=== PATIENT | male | born 1955 | race Caucasian/White ===

== ENCOUNTER 2018-03-30 02:27 | Outpatient (CLI) | payer OTHER, SELFPAY ==
[2018-03-30 11:40] LABS: HCT 45.4 % (40.0-50.0); HGB 15.2 g/dL (13.5-17.5); Mean Corp. HGB Concentration 33.5 g/dL (32.0-36.0); Mean Corpuscular Hemoglobin 31.2 pg (27.0-33.0); Mean Corpuscular Volume 93.2 fL (80-95); Mean Platelet Volume 11.1 fL (8.0-11.0); Platelet Count 285 x1000/uL (130-400); RBC 4.87 m/cumm (4.50-6.00); RBC Distribution Width 13.3 % (11.8-14.1); White Blood Cell Count 12.99 k/cumm (4.4-10.8)
[2018-03-30 12:40] LABS: ALT 28 U/L (12-78); AST 17 U/L (15-37); Albumin 3.6 g/dL (3.4-5.0); Alkaline Phosphatase 90 U/L (46-116); Anion Gap 7.3 mmol/L (3-11); BUN 22 mg/dL (7-18); Bilirubin, Total 0.5 mg/dL (0.2-1.0); CO2 30.7 mmol/L (21.0-32.0); CREATININE 1.37 mg/dL (0.70-1.30); Chloride 104 mmol/L (98-107); Cholesterol 153 mg/dL (50-200); Estimated GFR 52.48 (mL/min/1.73m2); Glucose 88 mg/dL (70-100); HDL Cholesterol 60 mg/dL (40-60); LDL CHOLESTEROL 80 mg/dL (<100); Potassium 4.5 mmol/L (3.5-5.1); Sodium 142 mmol/L (136-145); Triglyceride 76 mg/dL (30-150)
== END 2018-03-30 02:47 ==
PROVIDERS: PCP Internal Medicine; Visit Provider Internal Medicine
DX: I10 Essential (primary) hypertension (principal); D72.829 Elevated white blood cell count, unspecified; E78.5 Hyperlipidemia, unspecified
CPT/HCPCS: 36415; 80053; 80061; 83721; 85027

== ENCOUNTER 2018-04-20 06:14 | Day surgery (SDC) | payer OTHER, SELFPAY ==
[2018-04-20 06:15] VITALS: BP 136/69; PULSE 55; RESP 17; TEMP 36.6; O2SAT 95
--- NOTE | 2018-04-20 07:11 | W.PM.DSUDISC ---
Discharge Plan Disposition Patient Disposition: HOME Condition: Good Discharge Details Reason For Visit: RMF Trigger Finger Attending Provider: Robert Wong Primary Care Provider: Holli Moreno Home Meds and New Rx's Prescriptions: New ibuprofen 600 mg tablet 600 mg PO TID PRN (Reason: pain) Qty: 30 RF: 3 acetaminophen 500 mg capsule 1,000 mg PO Q8H PRN (Reason: pain) Qty: 90 RF: 0 Continue ASPIRIN 81 MG tablet 81 mg PO DAILY RF: 0 inhalational spacing device [Aerochamber Plus Flow-Vu,S Msk] 1 EACH spacer 1 ea Miscellaneous QID RF: 0 multivitamin 1 EACH tablet 1 ea PO BID RF: 0 fish oil-dha-epa 1 EACH capsule 1 ea PO BID RF: 0 cholecalciferol (vitamin D3) [Vitamin D3] 2,000 UNIT capsule 2,000 unit PO DAILY RF: 0 fluticasone-salmeterol [Advair Diskus] 1 EACH blister with device 1 puff Inhalation BID Qty: 3 RF: 4 albuterol sulfate [ProAir HFA] 8.5 GM HFA aerosol inhaler 2 puff Inhalation QID Qty: 1 RF: 3 bupropion HCl [Wellbutrin SR] 150 MG tablet extended release 12 hr 150 mg PO BID Qty: 180 RF: 4 metoprolol succinate [Toprol XL] 200 MG tablet extended release 24 hr 200 mg PO DAILY Qty: 90 RF: 4 simvastatin [Zocor] 20 MG tablet 20 mg PO HS Qty: 90 RF: 4 lisinopril-hydrochlorothiazide 1 EACH tablet 1 ea PO DAILY Qty: 90 RF: 4 lorazepam [Ativan] 1 MG tablet 1 mg PO DAILY PRNQty: 30 RF: 0 terazosin 1 MG capsule 1 mg PO HS Qty: 90 RF: 3 Discharge Instructions Stand Alone Forms: [place] T. Finger Release Activity:: Elevate Remove Dressings/Wound Care:: 48 hours Shower/Bathe:: 48 hours Diet:: As Tolerated Discharge Orders Discharge Orders: Discharge Order (Routine); Ordered 04/20/18 Ordered By: Robert Wong DS: Diagnosis Discharge Diagnosis (1) Trigger finger, right middle finger: Status: Acute
[2018-04-20] MEDS: Lidocaine 1% Pres-Free 5 ML VIAL (07:33)
[2018-04-20] MEDS: Bupivacaine 0.5% Pres-Free 30 ML VIAL (07:40)
--- NOTE | 2018-04-20 17:35 | ROE_ITS ---
Date of service: 04/20/18 Time of Service: 08:34 Operative Note DATE OF PROCEDURE: 04/20/18 PRE-OP DIAGNOSIS: Trigger Finger -right middle finger POST-OP DIAGNOSIS: same PROCEDURE: Trigger Finger Release -right middle finger SURGEON: Robert Wong ANESTHESIA: local PATHOLOGY: none sent COMPLICATIONS: None Patient was transported to: same day Patient's condition: stable Indications: I have seen Jono in clinic for symptoms of a trigger finger. The catching, clicking, locking, and pain limited function. The diagnosis of trigger finger was evident. The symptoms had not responded to conservative measures. I discussed trigger finger release with the patient. I reviewed the risks of the procedure to include, but not limited to, bleeding, infection, pain , stiffness, incomplete release, damage to nerves or vessels, continued catching , recurrence. Despite these risks, the patient elected to proceed. Findings: There was a tightened A1 karthik which was released. The flexor tendons were inspected and the patient was able to move the finger without any catching, clicking, or locking. Procedure Description: Jono was greeted in the preoperative holding area where the correct side was identified and marked. The consent was reviewed with the patient and signed. All questions were answered. Jono was taken back to the operating room. The patient was placed into the supine position on the operating room table with the right arm on an arm board. All bony prominences were well padded. No prophylactic antibiotics were administered since this was a clean, elective hand surgical case. The right arm was then prepped with Chloraprep and draped in a standard fashion with stockinette and extremity drape. A timeout to confirm correct identity, side and site, procedure, allergies, anesthesia, and medical concerns was performed. The surgical site was marked as a longitudinal incision directly over the A1 karthik of the involved digit. This was confirmed with palpation during finger flexion. This area, overlying the metacarpal head, was then anesthetized with 1 % Lidocaine. The patient tolerated this well and once the anesthetic had setup , the procedure began. A longitudinal incision was made through skin only, approximately 1cm. The deep tissues were dissected bluntly. Once the A1 karthik and flexor tendons were identified the soft tissue including neurovascular structures were retracted medially and laterally. There were no crossing structures over the A1 karthik. The proximal edge of the karthik was identified and the karthik was incised with tenotomy scissors. There was a release of the tendons once this was fully released. The tendons were then removed from the wound and inspected. Excess synovium was resected. The tendons were then returned and the patient was asked to move the finger into deep flexion and back to extension. There was no recreation of the pre- operative symptoms. The hand was then once more inspected for any A0 karthik or area of possible constriction. The wound was then irrigated and the skin was closed with a 4-0 Nylon. This was dressed with gauze and a Conform dressing. The patient tolerated the procedure well and was returned to the Same Day Surgery area in a stable condition suffering no known complication.
== END 2018-04-20 08:02 | disposition home or self-care (01) ==
PROVIDERS: PCP Internal Medicine; Visit Provider Student in an Organized Health Care Education/Training Program
PROC: (CPT 26055; principal; 2018-04-20 07:30)
DX: M65.331 Trigger finger, right middle finger (principal)
CPT/HCPCS: 26055

== ENCOUNTER 2018-11-24 12:26 | Outpatient (CLI) | payer OTHER, SELFPAY ==
[2018-11-24 12:58] LABS: Abs Immature Grans 0.01 k/cumm (0.0-0.09); Absolute Basophil Count 0.03 k/cumm (0.0-0.2); Absolute Lymphocyte Count 2.26 k/cumm (1.2-3.4); Absolute Monocyte Count 0.65 k/cumm (0.11-0.7); Basophils % 0.3; Eosinophils % 5.1; HCT 41.6 % (40.0-50.0); HGB 13.6 g/dL (13.5-17.5); Immature Grans % 0.1; Lymphocytes % 23.2; Mean Corp. HGB Concentration 32.7 g/dL (32.0-36.0); Mean Corpuscular Hemoglobin 30.5 pg (27.0-33.0); Mean Corpuscular Volume 93.3 fL (80-95); Mean Platelet Volume 11.5 fL (8.0-11.0); Monocytes % 6.7; Neutrophils % 64.6; Platelet Count 270 x1000/uL (130-400); RBC 4.46 m/cumm (4.50-6.00); RBC Distribution Width 13.2 % (11.8-14.1); White Blood Cell Count 9.75 k/cumm (4.4-10.8)
[2018-11-24 14:14] LABS: ALT 33 U/L (12-78); AST 19 U/L (15-37); Albumin 3.4 g/dL (3.4-5.0); Alkaline Phosphatase 74 U/L (46-116); Anion Gap 7.7 mmol/L (3-11); BUN 25 mg/dL (7-18); Bilirubin, Total 0.3 mg/dL (0.2-1.0); CO2 29.3 mmol/L (21.0-32.0); CREATININE 1.38 mg/dL (0.70-1.30); Chloride 105 mmol/L (98-107); Estimated GFR 51.88 (mL/min/1.73m2); Glucose 92 mg/dL (70-100); Potassium 4.1 mmol/L (3.5-5.1); Sodium 142 mmol/L (136-145); Total Protein 6.4 g/dL (6.4-8.2)
[2018-11-26 09:03] LABS: PSA, Screening 0.3 ng/ml (0-4.5)
== END 2018-11-24 12:46 ==
PROVIDERS: PCP Internal Medicine; Visit Provider Internal Medicine
DX: I10 Essential (primary) hypertension (principal); R35.1 Nocturia; R50.9 Fever, unspecified; Z12.5 Encounter for screening for malignant neoplasm of prostate
CPT/HCPCS: 36415; 80053; 84153; 85025

== ENCOUNTER 2018-12-06 07:04 | Day surgery (SDC) | payer OTHER, SELFPAY ==
--- NOTE | 2018-12-06 06:51 | COLE_ITS ---
Date of service: 12/06/18 Time of Service: 08:08 Colonoscopy Report Date of procedure: 12/06/18 Pre-op diagnosis general: Hx of polyps/ Family history of colon cancer Post-op diagnosis procedure note: same (and polyps and diverticulosis) Procedure: Colonoscopy with polypectomy by cold forceps Surgeon: Maria Luisa Xavier Anesthesia proc note operative: other (General/ ASA 3/ Elvis Alvarez, DAVONTE ) Estimated blood loss (mL): 5 Pathology: other (cecal polyp x2, Ascending polyp x2) Complications: None Disposition: same day Indications: Mr. Hirsch is a pleasant 63 year old male who is here today for another colonoscopy. His last Colonoscopy was in 2014 and he was noted to have a Tubular adenoma. he also has a family history of colon Cancer in his mother, Maternal Grandmother and maternal uncles and aunts. Risks, benefits and complications have been reviewed. Complications include but are not limited to bleeding, pain, perforation, missed small lesion/polyp, sore throat, aspiration and adverse reaction to the medications. Questions were entertained and answered to their satisfaction and they wished to proceed. No guarantees were given or implied. Prep: Miralax/Dulcolax Procedure Start Time: 08:08 Procedure End Time: 08:29 Retraction Time: 19 minutes Findings: 4 polyps noted. 2 in the cecum and 2 in the ascending colon. Mild diverticulosis of the sigmoid colon Procedure Description: After informed consent was obtained the patient was taken to the procedure room and placed in a left decubitous position. Monitors were applied and a time out was done. The patients name, date of , procedure, allergies to medications and metal in their body was reviewed. The patient was then sedated. Once sedated and comfortable a rectal exam was done. External exam was normal. Internal exam revealed a normal sphincter tone and no palpable masses. Unable to feel the prostate The scope was then introduced and retro-flexed. No internal hemorrhoids, polyps or masses were identified. The scope was then advanced to the cecum without difficulty. The TI and appendiceal orifice were identified. The prep was good. The scope was then slowly retracted over 19 minutes back into the rectum. Polyps were removed with cold forceps in the cecum x2 and the ascending colon x2. Mild diverticulosis was noted in the sigmoid colon. The scope was removed and the patient was woken up and taken back to Same day surgery in stable c ondition. The patient tolerated the procedure well and there were no immediate complications. Follow up: The patient should follow up in 3-5 years unless they develop changes in bowel habits or other new gastrointestinal complaints.
--- NOTE | 2018-12-06 06:51 | W.PM.DSUDISC ---
Discharge Plan Disposition Patient Disposition: HOME Condition: Good Discharge Details Reason For Visit: Colonoscopy Attending Provider: Maria Luisa Xavier Primary Care Provider: Holli Moreno Home Meds and New Rx's Prescriptions: Continued simvastatin [Zocor] 20 mg tablet 20 mg PO HS RF: 0 albuterol sulfate [ProAir HFA] 90 mcg/actuation HFA aerosol inhaler 2 puff Inhalation QID Qty: 1 RF: 3 acetaminophen 500 mg capsule 1,000 mg PO Q8H PRN (Reason: pain) Qty: 90 RF: 0 ASPIRIN 81 MG tablet 81 mg PO DAILY Qty: 100 RF: 2 bupropion HCl [Wellbutrin SR] 150 mg tablet sustained-release 12 hr 150 mg PO BID Qty: 180 RF: 4 cholecalciferol (vitamin D3) [Vitamin D3] 2,000 unit capsule 2,000 unit PO DAILY Qty: 90 RF: 3 fish oil-dha-epa 1,200-144-216 mg capsule 1 cap PO BID Qty: 90 RF: 3 fluticasone propion-salmeterol [Advair Diskus] 250-50 mcg/dose blister with device 1 inh Inhalation BID Qty: 1 RF: 5 ibuprofen 600 mg tablet 600 mg PO TID PRN (Reason: pain) Qty: 30 RF: 3 Aerochamber Plus Flow-Vu,S Msk spacer 1 ea Miscellaneous QID Qty: 10 RF: 3 lorazepam [Ativan] 1 mg tablet 1 mg PO DAILY PRN (Reason: anxiety) Qty: 30 RF: 0 metoprolol succinate [Toprol XL] 200 mg tablet extended release 24 hr 200 mg PO DAILY Qty: 90 RF: 4 Centrum Complete 18-400 mg-mcg tablet 1 tab PO BID Qty: 90 RF: 3 nitroglycerin 0.4 mg tablet, sublingual 0.4 mg SL Q5-15M PRN (Reason: angina) Qty: 90 RF: 2 terazosin 1 mg capsule 1 mg PO HS Qty: 90 RF: 3 lisinopril-hydrochlorothiazide 20-25 mg tablet 1 tab PO DAILY RF: 0 Discontinued polyethylene glycol 3350 17 gram/dose powder 238 g PO ONCE Qty: 238 RF: 0 bisacodyl [Dulcolax (bisacodyl)] 5 mg tablet,delayed release (DR/EC) 5 mg PO ONCE Qty: 4 RF: 0 Discharge Instructions Instructions: Colonoscopy (DC), Diverticulosis (DC), Colorectal Polyps (DC) Additional Instructions: Findings: 4 polyps mild diverticulosis Follow up: 3-5 years Please call if you develop: fevers >101.5 Nausea or Vomiting Abdominal pain that is not transient DAY SURGERY UNIT POST COLONOSCOPY INSTRUCTIONS 1. Because there will be medication in your system for the next 24 hours, you may feel a little sleepy. Your coordination will be affected. Therefore: a. Do not drive or operate dangerous equipment for 24 hours. b. Do not drink alcohol beverages for 24 hours (not even beer). c. Plan to go home and rest for the day. 2. Generally there are no restrictions on your activity after a day or so has gone by, but you may feel a bit fatigued for a few days. 3 After you arrive home you may have a light meal and return to a normal diet as you can tolerate it without feeling sick to your stomach. 4. After surgery, you may feel pain or discomfort. This should be only transient, but if it persists please contact your doctor. 5. If there are any questions regarding the findings of your procedure, please feel free to contact your doctor. 6. If you are unable to contact your doctor with a problem, contact the hospital at [phone]. 7. Continue all your regular medications unless directed otherwise. I understand the above instructions and have no questions. Signature of Patient or Responsible Adult Escort Date/Time Name of Responsible Adult Escort Signature of Nurse Date/Time Activity:: Activity as Tolerated Diet:: high Fiber diet Discharge Orders Discharge Orders: Discharge Order (Routine); Ordered 12/06/18 Ordered By: Maria Luisa Xavier DS: Diagnosis Discharge Diagnosis (1) S/P colonoscopy: Status: Acute (2) Colorectal polyps: Status: Acute (3) Diverticulosis: Status: Acute
[2018-12-06 07:25] VITALS: BP 172/86; PULSE 67; RESP 16; TEMP 36.1; O2SAT 96
[2018-12-06] MEDS: Lactated Ringers 1,000 ML 80 ML IV (07:42)
--- NOTE | 2018-12-06 08:12 | BOWEL_PTH ---
PATIENT: Bishop Hirsch LOC: [facility] U#:[id number] AGE/SX: 63/M ROOM: RE12/06/[address]: Maria Luisa Xavier MD : 1955 BED: DIS: 12/06/2018 SPEC #: [id number] RECD: 12/06/18 12:52 STATUS: OLGA LIDIA REQ #: [id number] GLEN: 12/06/18 08:[address]: Maria Luisa Xavier DEPT: Surgical Specimen RECD BY: Anabela Roberts ENTERED: 12/06/18 12:53 SP TYPE: Bowel OTHR DR: Holli Viera MD Tissues: 1 - BIOPSY BOWEL 2 - BIOPSY BOWEL Procedures: GROSS AND MICRO LEVEL 4 Comments: [id number]
[2018-12-06 09:10] VITALS: BP 134/71; PULSE 63; RESP 18; TEMP 36; O2SAT 96
== END 2018-12-06 09:35 | disposition home or self-care (01) ==
LOC: SUR 07:05
PROVIDERS: PCP Internal Medicine; Visit Provider Surgery
PROC: 0DJD8ZZ Inspection of Lower Intestinal Tract, Via Natural or Artificial Opening Endoscopic (ICD-10-PCS; CPT 45378; principal; 2018-12-06 08:30)
DX: Z12.11 Encounter for screening for malignant neoplasm of colon (principal); Z86.010 Personal history of colon polyps; Z80.0 Family history of malignant neoplasm of digestive organs; D12.0 Benign neoplasm of cecum; D12.2 Benign neoplasm of ascending colon; K51.40 Inflammatory polyps of colon without complications; K57.30 Diverticulosis of large intestine without perforation or abscess without bleeding; I10 Essential (primary) hypertension; J44.9 Chronic obstructive pulmonary disease, unspecified
CPT/HCPCS: 45380; 88305

== ENCOUNTER 2019-07-27 12:20 | Outpatient (REF) | payer OTHER, SELFPAY ==
--- NOTE | 2019-07-27 11:40 | SKI_PTH ---
PATIENT: Bishop Hirsch LOC: [facility] U#:[id number] AGE/SX: 63/M ROOM: RE07/27/[address]: Saira Mcconnell : 1955 BED: DIS: 07/27/2019 SPEC #: [id number] RECD: 07/27/19 12:50 STATUS: OLGA LIDIA REQ #: [id number] GLEN: 07/27/19 11:[address]: Saira Mcconnell DEPT: Surgical Specimen RECD BY: Anabela Roberts ENTERED: 07/27/19 12:51 SP TYPE: KHOA ZIMMER DR: Holli Viera MD Tissues: 1 - SKIN CYST/TAG/DEBRIDEMENT Procedures: GROSS AND MICRO LEVEL 3 Comments: [id number]
== END 2019-07-27 12:40 ==
LOC: LBN 12:20
PROVIDERS: PCP Internal Medicine; Visit Provider Surgery
DX: L72.8 Other follicular cysts of the skin and subcutaneous tissue (principal)
CPT/HCPCS: 88304

== ENCOUNTER 2019-07-28 08:29 | Outpatient (CLI) | payer OTHER, SELFPAY ==
[2019-07-28 12:32] LABS: Calculated LDL 80 mg/dL (<100); Cholesterol 149 mg/dL (<200); HDL Cholesterol 57 mg/dL (40-60); Triglyceride 61 mg/dL (<150)
== END 2019-07-28 08:49 ==
PROVIDERS: PCP Internal Medicine; Visit Provider Nurse Practitioner
DX: E78.5 Hyperlipidemia, unspecified (principal)
CPT/HCPCS: 36415; 80061

== ENCOUNTER 2019-09-09 10:09 | Outpatient (CLI) | payer OTHER, SELFPAY ==
[2019-09-09 12:42] LABS: CREATININE 1.13 mg/dL (0.70-1.30); Potassium 4.2 mmol/L (3.5-5.1)
== END 2019-09-09 10:29 ==
PROVIDERS: PCP Internal Medicine; Visit Provider Nurse Practitioner
DX: I10 Essential (primary) hypertension (principal)
CPT/HCPCS: 36415; 82565; 84132

== ENCOUNTER 2020-04-11 01:41 | Outpatient (CLI) | payer MEDICARE, OTHER, SELFPAY ==
--- NOTE | 2020-04-11 07:50 | DI.CT_ITS ---
EXAM: CT CHEST WO CLINICAL HISTORY: screening FOR LUNG CA,EXSMOKER TECHNIQUE: Imaging Protocol: Axial computed tomography images with coronal and sagittal reformatted images were created and reviewed COMPARISON: CT CHEST WITH CONTRAST from 10/18/2015 FINDINGS: Tracheobronchial tree: Patent where visualized. Mediastinum and Sasha: No dominant adenopathy or fluid collection. Small hiatal hernia. Pulmonary parenchyma: No consolidation or dominant measurable mass. Mild centrilobular emphysematous changes are present. Scarring or atelectasis in the right middle lobe and left lingula. Lung Nodules: None. Pleura: No effusion or pneumothorax. Heart: The heart is not dilated. Mild coronary artery calcification. No significant pericardial effu sarah beth. Aorta: Thoracic aorta non-dilated.Atherosclerosis. Upper abdomen: Unremarkable. Bones: Degenerative changes. Soft Tissues: Unremarkable. IMPRESSION: No pulmonary nodules. Lung RADS Cat 1 - Negative: No nodules and definitely benign nodules Lung-RADS 1.0 CATEGORIES: Category 0 - Prior chest CT exam(s) being located for comparison. Category 1 - Annual screening in 12 months. No nodules or definitely benign nodules. Category 2 - Annual screening in 12 months. Benign appearance. Nodules with low likelihood of becomin g active cancer. Category 3 - 6-month follow-up. Probably benign. Short-term follow-up suggested. Nodules with low lik elihood of becoming active cancer. Category 4A - 3-month follow-up and CT/PET if >8 mm in size. Suspicious finding. Findings which requi re additional testing. Category 4B - Findings which require additional testing and tissue sampling. Suspicious finding. C Added to Any of the Above - History of prior lung cancer screening. S Added to Any of the Above - Significant unexpected other finding. RADIATION DOSE DELIVERED: 91.73mGy.cm Total DLP 91.73mGy.cm Total DLP 91.73mGy.cm Total DLP DATA REPOSITORY: All CT scans at this facility are submitted to the National Radiology Data Registry (NRDR) Dose Index Registry (DIR) with the [employer] (ACR). RADIATION OPTIMIZATION: All CT scans at this facility use at least one of these dose optimization te chniques: automated exposure control; mA and/or kV adjustment per patient size (includes targeted exa ms where dose is matched to clinical indication); or iterative reconstruction.
== END 2020-04-11 02:01 ==
PROVIDERS: PCP Nurse Practitioner; Visit Provider Nurse Practitioner
DX: Z12.2 Encounter for screening for malignant neoplasm of respiratory organs (principal); Z87.891 Personal history of nicotine dependence
CPT/HCPCS: 71250

== ENCOUNTER 2020-09-14 01:55 | Outpatient (CLI) | payer MEDICARE, OTHER, SELFPAY ==
[2020-09-14 12:38] LABS: CREATININE 1.4 mg/dL (0.70-1.30); Calculated LDL 62 mg/dL (<100); Cholesterol 127 mg/dL (<200); HDL Cholesterol 51 mg/dL (40-60); Potassium 3.9 mmol/L (3.5-5.1); Triglyceride 71 mg/dL (<150)
== END 2020-09-14 01:56 | disposition home or self-care (01) ==
LOC: LOS 01:55
PROVIDERS: PCP Nurse Practitioner; Visit Provider Nurse Practitioner
DX: I10 Essential (primary) hypertension (principal); E78.5 Hyperlipidemia, unspecified
CPT/HCPCS: 36415; 80061; 82565; 84132

== ENCOUNTER 2021-10-02 03:00 | Outpatient (CLI) | payer MEDICARE, SELFPAY ==
[2021-10-02 08:05] LABS: Hemoglobin A1C 6.3 % (<5.7)
[2021-10-02 08:34] LABS: CREATININE 1.3 mg/dL (0.70-1.30); Calculated LDL 67 mg/dL (<100); Cholesterol 134 mg/dL (<200); Estimated GFR 55.06 (mL/min/1.73m2); HDL Cholesterol 49 mg/dL (40-60); Potassium 3.6 mmol/L (3.5-5.1); Triglyceride 93 mg/dL (<150)
== END 2021-10-02 03:01 | disposition home or self-care (01) ==
LOC: LBO 03:00
PROVIDERS: PCP Nurse Practitioner; Visit Provider Nurse Practitioner
DX: E78.2 Mixed hyperlipidemia (principal); I10 Essential (primary) hypertension; R73.09 Other abnormal glucose
CPT/HCPCS: 36415; 80061; 82565; 83036; 84132

== ENCOUNTER 2022-03-24 02:37 | Outpatient (CLI) | payer MEDICARE, SELFPAY ==
[2022-03-24 12:44] LABS: Anion Gap 9.1 mmol/L (3-11); BUN 27 mg/dL (7-18); CO2 30.9 mmol/L (21.0-32.0); CREATININE 1.6 mg/dL (0.70-1.30); Calcium 9.1 mg/dL (8.5-10.1); Calculated LDL 60 mg/dL (<100); Chloride 103 mmol/L (98-107); Cholesterol 123 mg/dL (<200); Estimated GFR 46.93 (mL/min/1.73m2); Glucose 90 mg/dL (74-106); HDL Cholesterol 53 mg/dL (40-60); Sodium 143 mmol/L (136-145); Triglyceride 52 mg/dL (<150)
[2022-03-24 13:36] LABS: Hemoglobin A1C 6.1 % (<5.7)
== END 2022-03-24 02:38 | disposition home or self-care (01) ==
LOC: LOS 02:37
PROVIDERS: PCP Nurse Practitioner; Visit Provider Nurse Practitioner
DX: I10 Essential (primary) hypertension (principal); R73.02 Impaired glucose tolerance (oral); E66.01 Morbid (severe) obesity due to excess calories; Z98.41 Cataract extraction status, right eye
CPT/HCPCS: 36415; 80048; 80061; 83036

== ENCOUNTER 2022-06-16 02:49 | Outpatient (CLI) | payer MEDICARE, SELFPAY ==
[2022-06-16 12:26] LABS: Bilirubin Negative (Negative); Blood Negative (Negative); Clarity Clear (Clear); Glucose Negative (Negative); Ketones Negative (Negative); Leukocyte Esterase Negative (Negative); Nitrite Negative (Negative); Specific Gravity >= 1.030 (1.005-1.025); Urobilinogen 0.2 EU/dL (Up TO 0.2); pH 5.5 (5-8)
[2022-06-16 12:43] LABS: PROTEIN 9.9 mg/dL (0.0-11.9)
[2022-06-16 12:46] LABS: ALT 29 U/L (16-63); AST 18 U/L (15-37); Albumin 3.6 g/dL (3.4-5.0); Alkaline Phosphatase 81 U/L (46-116); Anion Gap 5.5 mmol/L (3-11); BUN 22 mg/dL (7-18); Bilirubin, Total 0.4 mg/dL (0.2-1.0); CO2 31.5 mmol/L (21.0-32.0); CREATININE 1.4 mg/dL (0.70-1.30); Calcium 9.6 mg/dL (8.5-10.1); Chloride 104 mmol/L (98-107); Estimated GFR 55.09 (mL/min/1.73m2); Glucose 101 mg/dL (74-106); Potassium 3.6 mmol/L (3.5-5.1); Sodium 141 mmol/L (136-145)
[2022-06-16 13:09] LABS: Hemoglobin A1C 5.9 % (<5.7)
== END 2022-06-16 02:50 | disposition home or self-care (01) ==
LOC: LOS 02:49
PROVIDERS: PCP Nurse Practitioner Family; Visit Provider Family Medicine
DX: R73.03 Prediabetes (principal); K76.0 Fatty (change of) liver, not elsewhere classified; N18.30 Chronic kidney disease, stage 3 unspecified; R30.0 Dysuria
CPT/HCPCS: 36415; 80053; 81003; 83036; 84156

== ENCOUNTER → 2022-09-18 09:00 | Outpatient (BNVA) | payer MEDICARE, SELFPAY | PROVIDERS: PCP Nurse Practitioner Family; Referring Provider Nurse Practitioner; Visit Provider Physical Therapy Assistant | DX: Z12.11 Encounter for screening for malignant neoplasm of colon (principal); Z86.010 Personal history of colon polyps; Z80.0 Family history of malignant neoplasm of digestive organs ==

== ENCOUNTER 2022-10-03 07:54 | Day surgery (SDC) | payer MEDICARE, SELFPAY ==
--- NOTE | 2022-10-02 08:15 | W.COLOREPORT ---
Date of service: 10/03/22 Time of Service: 10:03 Colonoscopy Report Date of procedure: 10/03/22 Pre-op diagnosis general: villous adenoma in cecum /CRC in mother Post-op diagnosis procedure note: other (Diverticula and multiple polyps) Surgeon: Saira Mcconnell Anesthesia Type: General:No Airway Estimated blood loss (mL): 1 Pathology: other Complications: None Disposition: same day Prep: Miralax/Dulcolax Retraction Time: 24 Procedure Description: After informed consent was obtained the patient was taken to the procedure room and placed in a left decubitous position. Monitors were applied and a time out was done. The patients name, date of , procedure, allergies to medications and metal in their body was reviewed. The patient was then sedated. Once sedated and comfortable a rectal exam was done. External exam was normal. Internal exam revealed a normal sphincter tone and no palpable masses. The scope was then introduced and retrofelexed. No Internal hemorrhoids were identified. The scope was then advanced to the cecum without Difficulty. The TI and appendiceal orifice were identified. The prep was BBPS 3 in all segments for total of 9. the scope was then slowly retracted over 24 minutes back into the rectum. He had 3 polyps at 90 cm. 1 polyp was 1 cm flat polyp that was removed with a cold snare. The second polyp was a 0.75 cm flat polyp that is removed with cold snare. The third polyp is a 5 mm flat polyp that is removed with a cold biting forcep. He had x1 flat 5 mm polyp at 80 cm that is removed with a cold biting forcep. He had x3 polyps at 70 cm. One is removed with a cold snare ; that polyp is 0.75 cm and flat. The other x2 polyps are flat, 5 mm polyps were both removed with cold biting snare. He had a polyp at 60 cm that is a flat 5 mm polyp and is removed with a cold forcept. All specimens are retrieved and no bleeding is noted. He had a few small scattered diverticula confined to the sigmoid colon. There are no signs of active bleeding or infection. The mucosa is otherwise pink and healthy with a normal vascular pattern. The scope was removed and the patient was woken up and taken back to Same day surgery in stable condition. The patient tolerated the procedure well and there were no immediate complications. Follow up: The patient should follow up in approximately 3 years, path pending, unless they develop changes in bowel habits or other new gastrointestinal complaints.
--- NOTE | 2022-10-02 08:29 | PDOC.DSDIS_ITS ---
Date of service: 10/03/22 Time of Service: 10:00 Discharge Plan Disposition Patient Disposition: Home Condition: Good Discharge Details Attending Provider: Saira Mcconnell Primary Care Provider: Doc Del Toro Home Meds and New Rx's Prescriptions: Held ASPIRIN 81 MG tablet 81 mg PO DAILY Qty: 100 2RF Hold Instructions: Resume on 10/15/22. no asa/nsaid's for 10 days post procedure Discontinued bisacodyl [Dulcolax (bisacodyl)] 5 mg tablet,delayed release (DR/EC) 5 mg PO ONCE Qty: 4 0RF Rx Instructions: Take according to provider's instructions for colonoscopy prep. polyethylene glycol 3350 17 gram/dose powder 17 g PO ONCE Qty: 238 0RF Rx Instructions: To be taken as directed by prescriber's office for colonoscopy prep. No Action acetaminophen 500 mg capsule 1,000 mg PO Q8H PRN (Reason: pain) Qty: 90 0RF fexofenadine [Balbina Allergy] 60 mg tablet 60 mg PO BID lorazepam [Ativan] 1 mg tablet 1 mg PO DAILY PRN (Reason: anxiety) Qty: 30 0RF cholecalciferol (vitamin D3) [Vitamin D3] 50 mcg (2,000 unit) capsule 2,000 unit PO DAILY Qty: 90 3RF nitroglycerin 0.4 mg tablet, sublingual 0.4 mg SL Q5-15M PRN (Reason: angina) Qty: 90 2RF metoprolol succinate [Toprol XL] 200 mg tablet extended release 24 hr 200 mg PO DAILY Qty: 90 4RF terazosin 1 mg capsule 1 mg PO HS Qty: 90 3RF amlodipine 10 mg tablet 10 mg PO DAILY Qty: 90 3RF bupropion HCl [Wellbutrin SR] 150 mg tablet sustained-release 12 hr 150 mg PO BID Qty: 180 4RF lisinopril 20 mg tablet 20 mg PO DAILY Qty: 30 11RF lisinopril-hydrochlorothiazide 20-25 mg tablet 1 tab PO DAILY Qty: 90 3RF Rx Instructions: in addition to lisinopril 20 mg simvastatin [Zocor] 20 mg tablet 20 mg PO HS Qty: 90 4RF fluticasone propion-salmeterol [Advair Diskus] 250-50 mcg/dose blister with device 1 inh inhalation BID Qty: 60 11RF Discharge Instructions Additional Instructions: DSU Colonoscopy Post- Op Instructions Instructions for Everyone who is given Anesthesia: For your safety, please do the following for the next twenty-four (24) hours: *Do Not operate a motor vehicle (car, truck, motorcycle, etc.) *Do Not drink alcoholic beverages or use any recreational drugs for the first 24 hours or while taking pain medications. The medications in your body may have a reaction that can be dangerous. *Do Not make any important decisions or sign any important papers. Findings: -multiple polyps -diverticula Follow up: My office will send a letter in 2 to 3 weeks time detailing as to what type of polyps they were and when we want you to repeat the colonoscopy, most likely 3 years time. 1. No lifting over 20 pounds or strenuous activity for the first 72 hours after your procedure. After 72 hours there are no restrictions on your activity but you may feel fatigued for a few days. 2. After you arrive home you may have a light meal and return to your normal diet as you can tolerate it without feeling sick to your stomach. 3. You may have a bloated, gaseous feeling in your belly (abdomen) after a colonoscopy. Passing gas and belching will help. Walking or lying down on your left side with your knees flexed may relieve the discomfort. 4. No aspirin or NSAIDs for 7 to 10 days. Tylenol is okay. Call the office at [phone] (Office) or [phone] (Hospital) right away if you notice any of the following: a.Vomiting of blood or ?coffee ground stools?. b.Rectal bleeding 1Tbsp, blood clots or continuous bleeding. c.Severe belly (abdominal) pain. d.A hard distended belly (abdomen) and an inability to pass gas. 4. Please don?t expect to have a normal BM (bowel movement) for 2-3 days after your procedure. 5. If there are questions regarding the findings of your procedure, please conta ct your doctor 6. If you are unable to contact your doctor with a problem, contact the hospital at [phone]. 7. Continue all your regular medications unless directed otherwise. I understand the above instructions and have no questions. Signature of Patient or Adult Escort Name of Responsible Adult Escort Signature of Nurse Date/Time Activity:: see aboe Diet:: see above Discharge Orders Discharge Orders: Discharge Order (Routine); Ordered 10/03/22 Ordered By: Saira Mcconnell DS: Diagnosis Discharge Diagnosis (1) Villous adenoma of right colon: Status: Acute (2) Family history of colon cancer: (3) Non-alcoholic fatty liver disease: Status: Acute (4) Hyperlipidemia, unspecified: Status: Acute (5) Essential hypertension: Status: Acute (6) Depressive disorder: Status: Acute (7) Congenital anomaly of kidney: Status: Acute (8) Chronic obstructive lung disease: Status: Acute (9) Benign prostatic hyperplasia without lower urinary tract symptoms: Status: Acute (10) History of tobacco use:
[2022-10-03] VITALS (8 sets, daily range): BP systolic 108–138; BP diastolic 55–72; PULSE 56–66; RESP 16–22; TEMP 36.1–36.4; O2SAT 91–97; BMI 36.6
[2022-10-03] MEDS: Lactated Ringers 1,000 ML 80 ML IV (09:00)
--- NOTE | 2022-10-03 09:08 | W.ANESPRE ---
General Info Date of Service Date Performed: 10/03/22 Height: 5 ft 9 in Weight: 112.6 kg Body Mass Index (BMI): 36.6 Surgical Procedure: Operation Date: 10/03/22 09:05 Proposed Procedure Side Surgeon will Mcconnell, Meds Allergies and Home Medications Allergies Allergy/AdvReac Type Severity Reaction Status Date / Time environmental Allergy Intermediate stuffyness, Uncoded 10/03/22 08:33 sneezing Home Medication Medication Instructions Recorded ASPIRIN 81 mg PO DAILY #100 tab-caps 09/15/18 acetaminophen 500 mg capsule 1,000 mg PO Q8H PRN pain #90 caps 03/30/19 cholecalciferol (vitamin D3) 50 2,000 unit PO DAILY #90 caps 04/05/21 mcg (2,000 unit) capsule (Vitamin D3) nitroglycerin 0.4 mg sublingual 0.4 mg sublingual Q5-15M PRN 04/05/21 tablet angina #90 tabs metoprolol succinate 200 mg 200 mg PO DAILY #90 tab-caps 08/29/21 tablet,extended release 24 hr (Toprol XL) terazosin 1 mg capsule 1 mg PO HS #90 tab-caps 09/03/21 amlodipine 10 mg tablet 10 mg PO DAILY #90 tabs 09/13/21 bupropion HCl 150 mg tablet,12 hr 150 mg PO BID #180 tab-caps 09/13/21 sustained-release (Wellbutrin SR) lisinopril 20 mg tablet 20 mg PO DAILY #30 tabs 09/13/21 lisinopril 20 1 tab PO DAILY #90 tabs 09/13/21 mg-hydrochlorothiazide 25 mg tablet simvastatin 20 mg tablet (Zocor) 20 mg PO HS #90 tab-caps 09/13/21 fexofenadine 60 mg tablet (Balbina 60 mg PO BID 10/11/21 Allergy) fluticasone 250 mcg-salmeterol 50 1 inh inhalation BID #60 ea 10/14/21 mcg/dose blistr powdr for inhalation (Advair Diskus) lorazepam 1 mg tablet (Ativan) 1 mg PO DAILY PRN anxiety #30 06/02/22 tab-caps Current Visit Medications: Current Medications Generic Name Dose Route Start Last Admin Trade Name Freq PRN Reason Stop Dose Admin Hyoscyamine Sulfate 0.125 mg 10/03/22 08:31 Hyoscyamine 0.125 Mg Sl/Oral/Chew SL DIRECTED PRN Ringer's Solution 1,000 mls @ 80 mls/hr 10/03/22 06:00 10/03/22 09:00 IV 11/01/22 23:59 80 mls/hr INFUSION RUDY Administration IV Miscellaneous Supplies 1 each 10/03/22 06:00 Iv Access IV 11/01/22 23:59 DIRECTED RUDY Ondansetron HCl 4 mg 10/03/22 08:31 Ondansetron 4 Mg/2 Ml Vial IVP Q4H PRN PRN Nausea / Vomiting Sodium Chloride 0 ml 10/03/22 06:00 Normal Saline Flush 10 Ml Syr IV 11/01/22 23:59 PRN PRN Sodium Chloride 0 ml 10/03/22 06:00 Normal Saline 10 Ml Vial IJ 11/01/22 23:59 DIRECTED PRN Sterile Water 0 ml 10/03/22 06:00 Water,Injection,Sterile 10 Ml Vial IJ 11/01/22 23:59 DIRECTED PRN PFSH Active Problems Active Problems: Problem Status Onset Code Anxiety F41.9 Back pain 05/01/14 M54.9 Benign prostatic hyperplasia without lower urinary tract symptoms 10/29/15 N40.0 Chronic obstructive lung disease J44.9 Congenital anomaly of kidney 09/10/12 Q63.9 Depressive disorder F32.9 Essential hypertension 03/31/13 I10 Hyperlipidemia, unspecified 04/30/15 E78.5 Non-alcoholic fatty liver disease K76.0 Obesity E66.9 Old myocardial infarction 05/28/02 I25.2 Trigger finger, right middle finger M65.331 Allergic rhinitis J30.9 Prediabetes R73.03 Chronic kidney disease, stage 3 unspecified N18.30 Villous adenoma of right colon D37.4 Medical History Medical History Cyst of skin Diverticulosis Erectile dysfunction Family history of colon cancer History of tobacco use Hypertension Skin lesions Trigger finger of left hand repaired around 2018 Tubular adenoma Surgical History Surgical History LEFT HEART CARDIAC CATH 2002 Repair of inguinal hernia S/P colonoscopy (~12/06/18) 2014- Tubular adenoma Status post coronary artery stent placement 2003 Status post inguinal hernia repair Stent placement LAD 2002 Tobacco Smoking/Tobacco Use Status: Former Tobacco Use Passive smoking exposure: Yes Second hand exposure: Yes Alcohol Alcohol Intake: current Alcohol intake frequency: holidays/special occasions only Alcohol type: hard liquor Substance Use Substance use: Never Substance use type: does not use Vital Signs and Lab Results Vital Signs Most Recent Vital Signs in EMR: Most Recent Vital Signs Temp Pulse Resp BP Pulse Ox 36.4 C L 62 16 136/67 96 10/03/22 08:20 10/03/22 08:20 10/03/22 08:20 10/03/22 08:20 10/03/22 08:20 Lab Results Blood Type / Crossmatch: No Data to Display Complete Blood Count: No Data to Display Complete Metabolic Panel: No Data to Display Liver Function Panel: No Data to Display Coagulation Panel: No Data to Display Cardiac Panel: No Data to Display Arterial Blood Gas: No Data to Display Venous Blood Gas: No Data to Display Pancreas Panel: No Data to Display Thyroid Panel: No Data to Display Infectious Disease: No Data to Display Blood Cultures: No Data to Display Toxicology Panel: No Data to Display Imaging and Studies Imaging and Studies Study information below may be from another EMR and interpreted by another provider. Please see original notes in EMR for more complete details. Stress Test Summary: 09/30/2012: RESULTS Arrhythmias: Rare PVC Angina: None HR response: Max 140 bpm BP response: Normal ST-T changes: None MIBI SPECT images: This study was initially scheduled as a nuclear exam but the patient was unable to tolerate imaging because of claustrophobia within the gantry. Functional Capacity: ASSESSMENT: Negative for ischemia with reasonable treadmill exercise tolerance. Echocardiogram Summary: 09/29/2012: SUMMARY: Normal biventricular size and systolic function. 1-2+ MR. Pulmonary artery pressure is within normal limits. Atrial enlargement. Of note, LVEF was 64% on 05/13/05 study. Right ventricle was normal. Pulmonary artery pressure 40 mm. of mercury. FINDINGS: LEFT VENTRICLE: Normal size. ESTIMATED LVEF: LVEF 60-65%. RIGHT VENTRICLE: Normal size and function. ATRIA: Mild left atrial enlargement, the right atrium is normal. AORTIC VALVE: Mild aortic insufficiency, no stenosis. MITRAL VALVE: Mild to moderate mitral insufficiency, no stenosis. TRICUSPID VALVE: Mild tricuspid insufficiency. Pulmonary artery pressure is estimated at 30-35 mm. of mercury plus right atrial pressure. PULMONIC VALVE: Trace pulmonic insufficiency, no stenosis. GREAT VESSELS: The inferior vena cava is normal in size and collapse with inspiration. RSV/PA PRESSURE: Right atrial pressure estimated at less than 10 mm. of mercury. PERICARDIUM: No effusion. RHYTHM: Sinus. Pulmonary Function Summary: 09/29/2012: INTERPRETATION REQUESTING PROVIDER: Vinicius Blackwell M.D. Spirometry shows no evidence of obstructive airways disease. No bronchodilator response. Lung volumes show no evidence of restriction. Diffusion capacity normal. Airways resistance normal. IMPRESSION: Normal pulmonary function study. Clinical correlation recommended. Anesthesia Assessment and Plan Anesthesia History Personal History: No History of Anesthesia Complications Family History: No Family History of Anesthesia Complications Exercise Tolerance Exercise Tolerance: Metabolic Equivalents>4 Pertinent Negatives Pertinent Negatives: No Symptoms of GERD, No Major Cardiovascular Symptoms or Complaints and No Major Pulmonary Symptoms or Complaints Cardiac & Pulmonary Exam Cardiac Exam: Normal S1/S2 Heart Sounds Pulmonary Exam: Clear Bilateral Breath Sounds Implantable Cardiac Device Does patient have a Pacemaker or an ICD?: No Airway Exam Known Difficult Airway: No Mallampati Class: 2 Mouth Opening: Normal (> 3cm) Thyromental Distance: Greater than 3 cm Neck Range of Motion: Full ROM Neck Circumference: Thick Teeth Condition: Generalized Poor Dentition ASA Classification ASA Score: ASA 3 Emergency Case?: No NPO Status NPO Status: NPO Clears >2 hours, Solids >8 hours Anesthesia Plan Resuscitation Status: Full Code Anesthesia Technique: General Anesthesia Airway Planned: Natural Airway Monitors Used: Standard Monitors
--- NOTE | 2022-10-03 09:27 | BOWEL_PTH ---
PATIENT: Bishop Hirsch LOC: [facility] U#:[id number] AGE/SX: 67/M ROOM: RE10/03/[address]: Saira Mcconnell : 1955 BED: DIS: 10/03/2022 SPEC #: [id number] RECD: 10/03/22 13:00 STATUS: OLGA LIDIA RE #: [id number] GLEN: 10/03/22 09:[address]: Saira Mcconnell DEPT: Surgical Specimen RECD BY: Anabela Roberts ENTERED: 10/03/22 13:03 SP TYPE: Bowel OTHR DR: Doc Campo, SUSIE Tissues: 1 - BIOPSY BOWEL 2 - BIOPSY BOWEL 3 - BIOPSY BOWEL 4 - BIOPSY BOWEL Procedures: GROSS AND MICRO LEVEL 4 Comments: [id number]
--- NOTE | 2022-10-03 13:41 | W.ANESPOSTOP ---
Postoperative Evaluation Date, Time and Location Date Performed: 10/03/22 Time Performed: 10:20 Patient Location: PACU Vital Signs Most Recent Imported Vital Signs: Most Recent Vital Signs Temp Pulse Resp BP Pulse Ox 36.1 C L 59 L 16 123/69 95 10/03/22 10:58 10/03/22 10:58 10/03/22 10:58 10/03/22 10:58 10/03/22 10:58 Pain Score Most Recent Pain Score: Most Recent Pain Score Pain Level 0 10/03/22 10:58 Assessment Mental Status: Awake (Alert & Oriented to Patient Baseline) Airway and Respiratory Function: Patent airway with normal (patient baseline) respiratory exam Cardiovascular Function: Hemodynamically Stable Hydration Status: Adequately Hydrated Nausea & Vomiting: No Nausea or Vomiting Pain: Pt. Denies Any Pain Peripheral Nerve Block: Patient did not receive a nerve block
== END 2022-10-03 11:20 | disposition home or self-care (01) ==
PROVIDERS: PCP Nurse Practitioner Family; Visit Provider Surgery
PROC: 0DJD8ZZ Inspection of Lower Intestinal Tract, Via Natural or Artificial Opening Endoscopic (ICD-10-PCS; CPT 45378; principal; 2022-10-03 09:00)
DX: Z12.11 Encounter for screening for malignant neoplasm of colon; K63.5 Polyp of colon; K57.30 Diverticulosis of large intestine without perforation or abscess without bleeding; Z80.0 Family history of malignant neoplasm of digestive organs; Z86.010 Personal history of colon polyps
CPT/HCPCS: 45385; 45380; 88305; J2704

== ENCOUNTER 2023-05-27 03:12 | Outpatient (CLI) | payer MEDICARE, SELFPAY ==
[2023-05-27 09:33] LABS: ALT 31 U/L (16-63); AST 18 U/L (15-37); Albumin 3.6 g/dL (3.4-5.0); Alkaline Phosphatase 92 U/L (46-116); Anion Gap 9.3 mmol/L (3-11); BUN 20 mg/dL (7-18); Bilirubin, Total 0.5 mg/dL (0.2-1.0); CO2 28.7 mmol/L (21.0-32.0); CREATININE 1.6 mg/dL (0.70-1.30); Calcium 9.3 mg/dL (8.5-10.1); Calculated LDL 59 mg/dL (<100); Chloride 103 mmol/L (98-107); Cholesterol 133 mg/dL (<200); Estimated GFR 46.64 (mL/min/1.73m2); Glucose 105 mg/dL (74-106); HDL Cholesterol 58 mg/dL (40-60); Potassium 3.5 mmol/L (3.5-5.1); Sodium 141 mmol/L (136-145); Total Protein 7.4 g/dL (6.4-8.2); Triglyceride 80 mg/dL (<150)
[2023-05-27 18:42] LABS: PSA, Diagnostic 0.5 ng/mL (<=4.5)
[2023-05-28 10:01] LABS: HIV-1/2 Ag & Ab Screen Negative (Negative)
[2023-05-28 10:16] LABS: Hepatitis C Ab w Rflx HCV PCR Negative (Negative)
== END 2023-05-27 03:13 | disposition home or self-care (01) ==
LOC: LBO 03:12
PROVIDERS: PCP Nurse Practitioner Family; Visit Provider Nurse Practitioner Family
DX: Z11.4 Encounter for screening for human immunodeficiency virus [HIV] (principal); E78.2 Mixed hyperlipidemia; N40.0 Benign prostatic hyperplasia without lower urinary tract symptoms; Z11.59 Encounter for screening for other viral diseases
CPT/HCPCS: 36415; 80053; 80061; 86803; 87389; 84153

== ENCOUNTER → 2023-06-09 01:44 | Outpatient (CLI) | payer MEDICARE, SELFPAY ==
--- NOTE | 2023-06-09 07:30 | DI.US_ITS ---
Exam(s) US AAA SCREENING EXAM: US AAA SCREENING CLINICAL HISTORY: hx of smoking,SCREENING FOR AAA,Z13.6 COMPARISON: CT CT CHEST WO from 04/11/2020 FINDINGS: Abdominal Aorta: Proximal: 2.7 cm Mid: 2.1 cm Distal: 2.1 cm Iliacs: Right: 1.4 cm Left: 1.3 cm IMPRESSION: No evidence of abdominal aortic aneurysm. DATA REPOSITORY:
== END ==
PROVIDERS: PCP Nurse Practitioner Family; Visit Provider Nurse Practitioner Family
DX: Z13.6 Encounter for screening for cardiovascular disorders (principal)
CPT/HCPCS: 76706

== ENCOUNTER 2023-06-30 15:15 | Outpatient (CLI) | payer MEDICARE, SELFPAY ==
--- NOTE | 2023-06-30 12:00 | DI.RAD_ITS ---
Exam(s) XR ELBOW LT COMPLETE EXAM: XR ELBOW LT COMPLETE CLINICAL HISTORY: distal bicep rupture. TECHNIQUE: 2D digital imaging was performed of the left elbow. Three images were obtained. AP, lat eral and oblique views were obtained. COMPARISON: No exams were available for comparison FINDINGS: BONES: No acute fracture is present. No bony destructive lesion is seen. JOINTS: The elbow is normally aligned. No joint effusion is seen. SOFT TISSUE: There is a well corticated round osseous density adjacent to the lateral epicondyle whic h appears chronic. IMPRESSION: No acute abnormality. DATA REPOSITORY: RADIATION DOSE DELIVERED:
== END 2023-06-30 15:16 | disposition home or self-care (01) ==
LOC: DIORS 15:15
PROVIDERS: PCP Nurse Practitioner Family; Referring Provider Nurse Practitioner Family; Visit Provider Student in an Organized Health Care Education/Training Program
DX: S46.212A Strain of muscle, fascia and tendon of other parts of biceps, left arm, initial encounter; X50.0XXA Overexertion from strenuous movement or load, initial encounter
CPT/HCPCS: 99213; 73080

== ENCOUNTER 2024-06-07 09:24 | Outpatient (CLI) | payer MEDICARE, SELFPAY ==
[2024-06-07 12:50] LABS: ALT 29 U/L (16-63); AST 17 U/L (15-37); Albumin 3.6 g/dL (3.4-5.0); Alkaline Phosphatase 101 U/L (46-116); Anion Gap 9.3 mmol/L (3-11); BUN 22 mg/dL (7-18); Bilirubin, Total 0.35 mg/dL (0.2-1.0); CO2 30.7 mmol/L (21.0-32.0); CREATININE 1.6 mg/dL (0.70-1.30); Calcium 9.9 mg/dL (8.5-10.1); Calculated LDL 59 mg/dL (<100); Chloride 105 mmol/L (98-107); Cholesterol 142 mg/dL (<200); Estimated GFR 46.35 (mL/min/1.73m2); Glucose 81 mg/dL (74-106); HDL Cholesterol 62 mg/dL (40-60); Potassium 3.6 mmol/L (3.5-5.1); Sodium 145 mmol/L (136-145); Total Protein 7.4 g/dL (6.4-8.2); Triglyceride 108 mg/dL (<150)
[2024-06-07 18:11] LABS: PSA, Diagnostic 0.6 ng/mL (<=4.5)
== END 2024-06-07 09:25 | disposition home or self-care (01) ==
LOC: LOS 09:24
PROVIDERS: PCP Nurse Practitioner Family; Referring Provider Nurse Practitioner Family; Visit Provider Nurse Practitioner Family
DX: N40.0 Benign prostatic hyperplasia without lower urinary tract symptoms (principal); E78.2 Mixed hyperlipidemia
CPT/HCPCS: 36415; 80053; 80061; 84153

== ENCOUNTER 2024-12-06 14:44 | Outpatient (REF) | payer MEDICARE, SELFPAY ==
[2024-12-06 12:23] LABS: Abs Immature Grans 0.05 10^3/uL (0.0-0.06); Absolute Basophil Count 0.06 10^3/uL (0.0-0.2); Absolute Eosinophil Count 0.35 10^3/uL (0.0-0.7); Absolute Monocyte Count 0.73 10^3/uL (0.1-0.8); Basophils % 0.5 %; Eosinophils % 2.9 %; HCT 43.6 % (40.0-50.0); HGB 14.2 g/dL (13.5-17.5); Immature Grans % 0.4 %; Lymphocytes % 17.9 %; MCH 30.1 pg (27.0-33.0); MCHC 32.6 % (32.0-36.0); MCV 93 fL (80-95); MPV 11.9 fL (8.0-11.0); Monocytes % 6.1 %; Neutrophils % 72.2 %; Platelet Count 270 10^3/uL (130-400); RBC 4.71 10^6/uL (4.36-5.78); RDW 12.7 % (11.8-14.1); WBC 11.98 10^3/uL (4.4-10.8)
[2024-12-06 12:25] LABS: Anion Gap 6.7 mmol/L (3-11); BUN 24 mg/dL (7-18); CO2 32.3 mmol/L (21.0-32.0); CREATININE 1.3 mg/dL (0.70-1.30); Calcium 9.8 mg/dL (8.5-10.1); Chloride 105 mmol/L (98-107); Glucose 90 mg/dL (74-106); Potassium 4.2 mmol/L (3.5-5.1); Sodium 144 mmol/L (136-145); Uric Acid 7.3 mg/dL (3.5-7.2)
[2024-12-06 12:41] LABS: Absolute Lymphocyte Count 2.14 10^3/uL (1.2-3.4); Absolute Neutrophil Count 8.65 10^3/uL (1.2-6.7)
== END 2024-12-06 14:45 | disposition home or self-care (01) ==
LOC: LBN 14:44
PROVIDERS: PCP Nurse Practitioner Family; Visit Provider Nurse Practitioner Family
DX: M79.674 Pain in right toe(s) (principal)
CPT/HCPCS: 80048; 84550; 85025

== ENCOUNTER 2025-06-12 09:40 | Outpatient (CLI) | payer MEDICARE, SELFPAY ==
[2025-06-12 15:44] LABS: TSH (W/Ref FT4) 2.18 uIU/mL (0.55-4.78)
[2025-06-12 15:47] LABS: Hemoglobin A1C 5.8 % (<5.7)
[2025-06-12 15:49] LABS: Uric Acid 8.7 mg/dL (3.7-9.2)
[2025-06-12 16:42] LABS: ALT 30 U/L (10-49); AST 24 U/L (<34); Albumin 4.3 g/dL (3.2-5.0); Alkaline Phosphatase 93 U/L (46-116); Anion Gap 8.2 mmol/L (3-11); BUN 22 mg/dL (9-23); Bilirubin, Total 0.4 mg/dL (0.2-1.2); CO2 32.8 mmol/L (20.0-31.0); Calcium 9.5 mg/dL (8.3-10.6); Chloride 101 mmol/L (98-107); Cholesterol 118 mg/dL (<200); Glucose 87 mg/dL (74-106); HDL Cholesterol 50 mg/dL (>40); Potassium 3.7 mmol/L (3.5-5.1); Sodium 142 mmol/L (136-145); Total Protein 7.1 g/dL (5.7-8.2)
[2025-06-13 00:17] LABS: PSA, Screening 0.7 ng/mL (<=6.5)
[2025-06-13 01:05] LABS: HBs Antibody, Quant <3.1 mIU/mL (See Note); Hepatitis B Surface Antigen Negative (Negative)
== END 2025-06-12 09:41 | disposition home or self-care (01) ==
PROVIDERS: PCP Nurse Practitioner Family; Visit Provider Nurse Practitioner Family
DX: E78.2 Mixed hyperlipidemia (principal); Z12.5 Encounter for screening for malignant neoplasm of prostate; Z11.59 Encounter for screening for other viral diseases; R73.03 Prediabetes; M10.9 Gout, unspecified; R63.5 Abnormal weight gain
CPT/HCPCS: 36415; 80053; 80061; 84153; 86704; 86706; 87340; 83036; 84443; 84550